=== PATIENT | female | born 1980 | race Caucasian/White ===

== ENCOUNTER 2019-04-22 16:25 | Emergency (ER) | payer SELFPAY ==
[~2019-04-22] VITALS: Ht 172.7 cm; Wt 68.0 kg
[2019-04-22] MEDS ORDERED: CEFTRIAXONE SOD 1 GM VIAL IM ONE (16:45)
[2019-04-22] MEDS ORDERED: DOXYCYCLINE HYCLATE TABLET 100 MG TAB PO ONE (16:45)
[2019-04-22] MEDS ORDERED: AZITHROMYCIN 250 MG TAB PO ONE (16:45)
[2019-04-22] MEDS ORDERED: LIDOCAINE HCL 1% 2 ML AMP ONE (17:06)
== END 2019-04-22 17:27 | disposition home or self-care (01) ==
LOC: ER 16:25
DX: A64 Unspecified sexually transmitted disease (principal); S90.512A Abrasion, left ankle, initial encounter; S90.812A Abrasion, left foot, initial encounter
CPT/HCPCS: 99281; J0696; J2001

== ENCOUNTER 2019-05-12 19:06 | Emergency (ER) | payer SELFPAY ==
[~2019-05-12] VITALS: Ht 172.7 cm; Wt 68.0 kg
== END 2019-05-12 19:23 | disposition home or self-care (01) ==
LOC: ER 19:06
DX: Z76.0 Encounter for issue of repeat prescription (principal); F41.9 Anxiety disorder, unspecified
CPT/HCPCS: 99282